=== PATIENT | female | born 1970 | race Two or more races ===

== ENCOUNTER 2018-01-09 07:31 | Outpatient (CLI) | payer OTHER | END 2018-01-09 07:38 | disposition home or self-care (01) | LOC: MAMO-SONO 07:31 | DX: Z12.31 Encounter for screening mammogram for malignant neoplasm of breast (principal); N64.89 Other specified disorders of breast; N64.4 Mastodynia; N60.11 Diffuse cystic mastopathy of right breast ==

== ENCOUNTER 2018-01-13 09:36 | Outpatient (CLI) | payer OTHER | END 2018-01-13 09:59 | disposition home or self-care (01) | LOC: MAMO-SONO 09:36 | DX: N64.89 Other specified disorders of breast (principal) ==

== ENCOUNTER 2022-09-19 10:24 | Outpatient (CLI) | payer OTHER | END 2022-09-19 10:39 | disposition home or self-care (01) | LOC: MAMO-SONO 10:24 | PROVIDERS: ATTEND Obstetrics & Gynecology Maternal & Fetal Medicine | DX: Z12.31 Encounter for screening mammogram for malignant neoplasm of breast (principal); N63.0 Unspecified lump in unspecified breast; N64.4 Mastodynia; N60.11 Diffuse cystic mastopathy of right breast ==